=== PATIENT | female | born 1930 | race Caucasian/White ===

== ENCOUNTER 2016-03-01 16:49 | Inpatient (IN) | payer OTHER ==
[2016-03-01] MEDS: VANCOMYCIN 125 MG/2.5 ML UDL PO SCH (23:05)
[2016-03-02 06:11] LABS: % IMMATURE GRANULYOCYTES 0.4 % (0.0-1.1); ABSOLUTE IMMATURE GRANULOCYTES 0.02 10^3/uL (0.00-0.10); ADD DIFF? NO; ADD MORPH? NO; ADD SCAN? NO; ATYPICAL LYMPHOCYTE FLAG 10 (0-99); FRAGMENT RBC FLAG 0 (0-99); HEMATOCRIT 42.6 % (38.0-47.0); HEMOGLOBIN 14.6 g/dL (12.6-16.3); LEFT SHIFT FLG 0 (0-99); LIPEMIA HEMOLYSIS FLAG 90 (0-99); MEAN CELL HEMOGLOBIN 33.6 pg (27.9-34.1); MEAN CELL HEMOGLOBIN CONCENTR. 34.3 g/dL (32.4-36.7); MEAN CELL VOLUME 98.2 fL (81.5-99.8); MEAN PLATELET VOLUME 9.1 fL (8.7-11.7); PLATELET CLUMPS FLAG 0 (0-99); PLATELET COUNT 172 10^3/uL (150-400); RED BLOOD CELL COUNT 4.34 10^6/uL (4.18-5.33); RED CELL DISTRIBUTION WIDTH 12.2 % (11.5-15.2)
[2016-03-02 06:15] LABS: APTT 26.5 SEC (23.0-38.0); INR 1.36 (0.83-1.16); PROTIME(PATIENT) 16.8 SEC (12.0-15.0)
[2016-03-02 06:37] LABS: ALANINE AMINOTRANSFERASE 37 IU/L (9-52); ALBUMIN 2.9 g/dL (3.5-5.0); ALKALINE PHOSPHATASE 65 IU/L (38-126); ANION GAP 6 mEq/L (8-16); ASPARTATE AMINOTRANSFERASE 20 IU/L (14-46); BILIRUBIN,TOTAL 0.8 mg/dL (0.1-1.4); CALCIUM 8.8 mg/dL (8.5-10.4); CARBON DIOXIDE 26 mEq/l (22-31); CHLORIDE 108 mEq/L (97-110); CREATININE 0.7 mg/dL (0.6-1.0); GLOMERULAR FILTRATION RATE > 60; GLUCOSE 91 mg/dL (70-100); POTASSIUM 4.2 mEq/L (3.5-5.2); SODIUM 140 mEq/L (134-144); TOTAL PROTEIN 5.9 g/dL (6.3-8.2)
[2016-03-02] MEDS ORDERED: NS 1,000 ML IV ONE (09:20)
[2016-03-02] MEDS ORDERED: HEPARIN 10,000 UNIT/10 ML MDV ONE (10:57)
[2016-03-02] MEDS ORDERED: LIDOCAINE 1% 30 ML SDV ONE ×2 (10:57→14:20)
[2016-03-02] MEDS ORDERED: ISOPROTERENOL HCL 0.2 MG/ML 5ML AMP ONE (10:57)
[2016-03-02] MEDS ORDERED: BUPIVACAINE 0.5% 30 ML SDV ONE (10:57)
[2016-03-02] MEDS ORDERED: PROPOFOL/EMULSION 500 MG/50 ML BOTTLE IV ONE ×2 (11:36→12:59)
[2016-03-02] MEDS ORDERED: ceFAZolin 2 GM/DEXTROSE 100 ML IV ONE (11:57)
[2016-03-02] MEDS ORDERED: BACITRACIN IRRIGATION/NS 50,000 UNITS/1,000 ML BTL IRR ONE (11:57)
[2016-03-02] MEDS ORDERED: fentaNYL 100 MCG/2 ML INJ ONE (12:01)
[2016-03-02] MEDS: CHOLECALCIFEROL VIT D3 2,000 UNITS TAB/CAP PO SCH (14:42)
[2016-03-02] MEDS: VSL#3 1 EACH CAP PO SCH (14:43)
[2016-03-02] MEDS: VANCOMYCIN 125 MG/2.5 ML UDL PO SCH ×2 (14:43→20:47)
--- NOTE | 2016-03-02 15:22 | SUROPNOTE ---
LEDA Operative Report - Surgery Date of Procedure: 03/02/15 Indication: This patient is an 86 year old woman, with new LBBB, left ventricular dysfunction, and minimal coronary artery disease on left heart catheterization 03/01/16 at [facility], presenting with several weeks of episodic near syncope, one of which resulted in a true syncopal episode. While performing coronary angiography 03/01/16, the patient was witnessed to have a short, 10-beat, run of monomorphic ventricular tachycardia. She was subsequently admitted to [facility] last night and underwent EP study with Dr. Silverman this afternoon, which demonstrated no inducible ventricular tachycardia. She will now undergo placement of implantable loop recorder for arrhythmia monitoring. Procedure Performed: 1. Placement of an implantable loop recorder Description of procedure: Risks, benefits, and alternatives were discussed in detail. Informed consent was obtained. Left anterior chest was sterilely prepped and draped. 30cc of 1% lidocaine was utilized for local anesthetic, injected with a micropuncture needle. A skin incision was made with a #7 blade. Tract was dilated using a dilating tool. The device was implanted with the implantation device. The antenna was placed cephalad. The incision was closed with four ana. Device implanted: [employer] BioMonitor 2-AF , model number 305353, serial number [id number]. Portions of this chart were entered by a scribe. I have reviewed this chart and agree with the documentation. Report scribed for Dr. Leander Bosch. Report scribed by Sue Vazquez.
[2016-03-02] MEDS ORDERED: ACETAMINOPHEN 325 MG TAB PO PRN (16:09)
[2016-03-02] MEDS ORDERED: OXYCODONE/APAP 5/325 TAB PO PRN (16:09)
[2016-03-02] MEDS ORDERED: ONDANSETRON 4 MG/2 ML VIAL IVP PRN (16:09)
[2016-03-03] MEDS: VANCOMYCIN 125 MG/2.5 ML UDL PO SCH ×2 (09:39→20:57)
[2016-03-03] MEDS: CHOLECALCIFEROL VIT D3 2,000 UNITS TAB/CAP PO SCH (09:40)
[2016-03-03] MEDS: VSL#3 1 EACH CAP PO SCH (09:40)
--- NOTE | 2016-03-03 11:03 | GCON ---
[f rep st] CONSULTATION HOSPITALIST CONSULTATION REFERRING PHYSICIAN: Leander Bosch MD REASON FOR CONSULTATION: Syncope. HISTORY OF PRESENT ILLNESS: This is an 86-year-old female, who was admitted by Dr. Bosch for synco pe. Apparently she had a normal cardiac catheterization done out of [place] earlier this week and loop recorder placed yesterday. The patient lives at home independently with her in [place]. She had a syncopal episode while walking from her garage into her house. She was walking up the steps when she develope d a bandlike tightness around her chest, as well as feeling flushed, at which time she then lost cons ciousness. She states that she has had near loss of consciousness a few times over the past few radha hs. During the time of my exam, patient denies any chest pain or shortness of breath. She thinks she may have had some palpitations over night. She denies any fevers or chills. She has been eating a regu lar diet and sleeping well at night. She denies any urinary complaints. She denies any diarrhea. PAST MEDICAL HISTORY: 1. Colon cancer. 2. Hypertension. 3. C difficile infection. PAST SURGICAL HISTORY: 1. Hysterectomy. 2. Colon resection. 3. Hernia repair. MEDICATIONS: At home: Coumadin, vitamin D, vancomycin. ALLERGIES: No known drug allergies. SOCIAL HISTORY: The patient lives in [place] with her . She denies any alcohol, tobacco or illicit drug use. FAMILY HISTORY: Reviewed and noncontributory. REVIEW OF SYSTEMS: Comprehensive 10-point review of systems was done and is negative except for as m entioned in the HPI and below. The patient reports being unsteady on her feet as well as some chroni c pain in her knees and feet. She did take a fall last week where she landed on her right side and h ad some bruising. PHYSICAL EXAM: VITAL SIGNS: Blood pressure 135/70, pulse 74, respiratory rate 17, O2 saturation 98% on 1 L, temperature afebrile. GENERAL: No acute distress. HEAD: Normocephalic, atraumatic. MOUT H: Moist mucous membranes. NECK: Supple. No lymphadenopathy. CARDIOVASCULAR: S1, S2. No JVD. No lower extremity edema. PULMONARY: Lungs are clear. No wheezes, rales, or rhonchi. ABDOMEN: So ft, nontender, nondistended. No guarding or rebound tenderness. Normoactive bowel sounds. EXTREMIT IES: No clubbing or cyanosis. NEURO: Cranial nerves 2-12 grossly intact. No focal motor or sensor y deficits. SKIN: There is some bruising over her right arm. DIAGNOSTICS: From 03/02/2016, WBC is 5.5, hemoglobin 14.6, hematocrit 42.6, platelets 172. INR 1.36 . Sodium 140, potassium 4.2, chloride 108, CO2 of 26, BUN 14, creatinine 0.7, glucose 91, LFTs unrema rkable. BNP 921. Albumin 2.9. ASSESSMENT AND PLAN: This is an 86-year-old female who underwent a cardiac catheterization on 2016 at [facility], as well as a loop recorder placement, whom I have been asked to see due to: 1. Syncope: The patient's symptoms do sound somewhat consistent with a vasovagal syncope given that she seems to be flushed prior to passing out. I did note that during her angiogram done 03/01/2016 the patient did have a short 10-beat run of monomorphic ventricular tachycardia, which could possibly be contributing to her symptoms as well. At any rate, the patient has a loop recorder in place. Bandar gonsalves is not agreeable to go to a long-term facility. I will order physical therapy and occupation al therapy to evaluate her safety and continue to follow along with the Cardiology service while she is here in the hospital. 2. History of hypertension. Plan is to continue home medications. 3. Coumadin anticoagulation for unclear reason. Plan: We will attempt to gain more information as to why the patient is on Coumadin. 4. History of Clostridium difficile on vancomycin 250 p.o. b.i.d. Thank you for allowing me to participate in the care of this patient. We will continue to follow gardenia cuellar with you. /[id number]/MODL
[2016-03-03] MEDS ORDERED: WARFARIN SODIUM 5 MG TAB PO SCH (16:00)
--- NOTE | 2016-03-03 16:03 | EPPROC ---
Electrophysiology Procedure Note: DIAGNOSTIC ELECTROPHYSIOLOGIC STUDY Procedures performed: * Fluoroscopy * EP evaluation with RA/RV/LA pace/record, with arrhythmia induction * EP evaluation with RA/RV pace record, insert/reposition catheter, with arrhythmia induction INDICATION: Dizziness and syncope of unknown etiology PROCEDURE: Catheters & Anesthesia: The patient arrived in the Electrophysiology Laboratory in the fasting state. The right clavicular region, right groin, & left groin area were prepped & draped in the usual sterile manner. Moderate sedation was administered.. Appropriate non-invasive blood pressure, pulse oximetry & end-tidal CO2 monitoring was established. All catheters were placed percutaneously using the modified Seldinger technique , and advanced into position under fluoroscopic guidance. One #6 Polish hexapolar non-deflectable electrode catheter was inserted into the right atrial appendage via the left femoral vein (2mm spacing; except the proximal ring which was 25cm from the tip used for unipolar recordings). One #6 Polish deflectable CRD2 catheter was placed in the His and then moved to RA, RVA and RVOT. Programmed stimulation was performed from the right atrium, right ventricle Ventricular programmed stimulation was performed using standard protocol (2 pacing sites, 2 basic cycle lengths, up to 2 extrastimuli at twice pacing threshold). The catheters were removed. The patient was transferred to the cardiovascular holding area in stable condition. Vascular access sheaths were removed in the holding area. There were no apparent complications. Results: * Spontaneous Intervals: Pre ablation SCL 1068 ms AH 68 ms HV 45ms * AVWB 390 * VAWB 240 * No SVT induced * SNRT normal. cSNRT normal * Conversion pause after AF <3 sec * No VT or NSVT induced CONCLUSIONS * Normal sinus and AV node function. * No evidence of accesory AV pathway presence. * No sustained arrhythmias induced. * No apparent complications.
[2016-03-03 16:15] LABS: APTT 25.6 SEC (23.0-38.0); INR 1.11 (0.83-1.16); PROTIME(PATIENT) 14.2 SEC (12.0-15.0)
[2016-03-03] MEDS ORDERED: IOPAMIDOL (ISOVUE 370) 75 ML BTL IV ONE (18:53)
--- NOTE | 2016-03-03 22:04 | CT ---
CT Scan of Head (Without Contrast) Clinical Indications: Dizziness and syncope. Technique: Axial CT images were acquired from foramen magnum through vertex, without intravenous con trast. Soft tissue and bone windows were reviewed on the computer workstation. Images were reconstr ucted down to 1.25-mm images. Dose reduction techniques were utilized. Findings: There is supratentorial volume loss, mild for age. There is moderate periventricular whit e matter disease. Vessels show symmetric density intracranially. No hydrocephalus. No intracranial hemorrhage or mass. Soft tissues and bones are within normal limits. Impression: Mild atrophy and moderate periventricular white matter disease. Nothing acute intracran ially.
--- NOTE | 2016-03-03 22:12 | CT ---
CT Angiogram of the Chest Clinical Indications: Syncope. Elevated D-dimer. Technique: 1.25-mm thin axial images are performed from lung apex through base during intravenous co ntrast injection of 85 mL of Isovue-300. Coronal and parasagittal reformatted images are reviewed on PACS workstation. Dose reduction techniques were utilized. Comparison: None. Findings CT Angiogram of the Chest: There is no evidence for acute or chronic pulmonary embolic disease. Sona tral pulmonary vasculature demonstrates normal contrast enhancement. No masses. There is an abundant amount of left anterior chest wall collaterals with today's venous injection. T here is absence of the left subclavian vein. There is a very prominent internal mamillary vein that subsequently connects with the chest wall collaterals. The patient has an implanted device in the le ft anterior chest wall. No leads are present within the vessels or heart. Right-sided subclavian ve in is patent. The IJs are patent. CT Scan Chest: Lungs are clear. Heart and mediastinum are normal. There is no evidence for nodule or consolidation. No effusion. Visualized upper abdomen is normal. No adenopathy. Impressions 1. No pulmonary embolism. 2. No acute cardiopulmonary process. 3. 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
--- NOTE | 2016-03-03 23:34 | US ---
Bilateral Duplex Carotid Sonography Clinical Indications: Single the Technique: The cervical portions of the carotid and vertebral arteries were imaged and interrogated by color and pulsed Doppler. Spectral analysis was performed. Findings: Right Carotid: The common carotid artery, bifurcation, and origin of the internal and external carot id artery are well imaged. Doppler velocity estimates and color Doppler spectra are normal. No evid ence of flow-limiting stenosis. CCA peak systolic velocity is 62 cm/sec. ICA peak is velocity is 83 c m/sec the ICA to CCA ratio is 1.3. There is a mild amount of intimal thickening at the carotid bifurc ation and bulb. Left Carotid: The common carotid artery, bifurcation, and origin of the internal and external caroti d artery are well imaged. Doppler velocity estimates and color Doppler spectra are normal. No evide nce of flow-limiting stenosis. CCA peak systolic velocity is 78 cm/sec the ICA peak systolic velocity 71 cm/sec. ICA to CCA ratio is 0.9. There is a mild amount of plaque at the carotid bifurcation. Vertebral Arteries: Antegrade flow is shown by pulsed Doppler of each vertebral artery. Impression: Less than 50% stenosis of bilateral carotid arteries are bifurcation. Measurement of carotid stenosis is based on velocity parameters that correlate the residual internal carotid diameter with [place] Symptomatic Carotid Endarterectomy Trial (NASCET) based stenosis levels.
[2016-03-04 03:40] VITALS: O2SAT 92
[2016-03-04 04:52] LABS: INR 1.1 (0.83-1.16); PROTIME(PATIENT) 14.1 SEC (12.0-15.0)
[2016-03-04 08:16] VITALS: BP 117/67; PULSE 74; RESP 13; TEMP 98.8
[2016-03-04] MEDS: CHOLECALCIFEROL VIT D3 2,000 UNITS TAB/CAP PO SCH (10:09)
[2016-03-04] MEDS: VANCOMYCIN 125 MG/2.5 ML UDL PO SCH (10:09)
[2016-03-04] MEDS: VSL#3 1 EACH CAP PO SCH (10:09)
--- NOTE | 2016-03-04 14:57 | GDS ---
[f rep st] DISCHARGE SUMMARY DISCHARGE DIAGNOSES: 1. Syncope. 2. History of hypertension. 3. History of pulmonary embolism, on Coumadin. 4. History of Clostridium difficile colitis. CONSULTANTS: Hospital Medicine and Cardiology. HOSPITAL COURSE AND STAY BY PROBLEM: Syncope: The patient was admitted to the hospital by Dr. Reggie Bosch for further evaluation of syncope. Apparently the patient underwent cardiac catheterizati on at [facility] on 03/01/2016 that did not reveal any significant coronary disease. Subsequently, she w as admitted at [place] where a loop recorder was placed. While in the hospital, the patient has not been noted to have any arrhythmias or any other bouts of recurrent syncope. During the cardiac catheterization, it was noted that the patient did have a 10-beat run of nonsustai boy V tach, which could possibly be contributing to her syncope. Once again, a loop recorder has bee n placed. During her hospital stay, a CT angio of the chest was ordered that was negative for PE. A carotid Do ppler study was done that was negative for any flow-limiting carotid artery stenosis. On the day of discharge, the patient states she feels well and is agreeable to be discharged home. I discussed the case with Dr. Bosch, who plans to see her in followup in his office. PHYSICAL EXAM: VITAL SIGNS: On the day of discharge, blood pressure 117/67, pulse 74, respiratory r ate 13, O2 sat 92% on 1 L, temperature afebrile. GENERAL: No acute distress. HEART: S1, S2. LUNG S: Clear. ABDOMEN: Soft. NEURO: No focal motor or sensory deficits. DIAGNOSTICS DONE THIS HOSPITAL STAY: CT angio of the chest done 03/03/2016. Head CT done 03/03/2016 . Carotid Doppler done 03/03/2016. DISCHARGE MEDICATIONS: Please refer to discharge medication reconciliation in [facility] for details. DISCHARGE INSTRUCTIONS: The patient will be discharged from the hospital, where she plans to follow up with Dr. Bosch. She should seek medical attention if she continues to have any syncopal episode s. /[id number]/MODL
[2016-03-06 13:38] LABS: PROTEIN C ACTIVITY 87 % (70 - 150)
[2016-03-06 14:59] LABS: PROTEIN S ACTIVITY 60 % (65 - 160)
[2016-03-07 14:49] LABS: INTERPRETATION See Comments (())
== END 2016-03-04 13:50 | disposition home or self-care (01) | DRG 274 ==
LOC: F2W 17:46 → OBSVTOIN 03-02 15:17
PROVIDERS: ADMIT Internal Medicine Interventional Cardiology; ATTEND Internal Medicine Interventional Cardiology
PROC: 0JWT0PZ Revision of Cardiac Rhythm Related Device in Trunk Subcutaneous Tissue and Fascia, Open Approach (ICD-10-PCS; 2016-03-02)
PROC: 4A023FZ Measurement of Cardiac Rhythm, Percutaneous Approach (ICD-10-PCS; principal; 2016-03-03)
DX: R55 Syncope and collapse (principal); I10 Essential (primary) hypertension; I44.7 Left bundle-branch block, unspecified; I25.10 Atherosclerotic heart disease of native coronary artery without angina pectoris; Z85.038 Personal history of other malignant neoplasm of large intestine; Z79.01 Long term (current) use of anticoagulants; Z86.711 Personal history of pulmonary embolism
CPT/HCPCS: 81332-90; 81479-90; 85300-90; 85303-90; 85306-90; 86147-90; 97162-GP; C1764; G8978-GP-CI; G8979-GP-CI; G8980-GP-CI; J0690; J1644; J2704; J3010